=== PATIENT | male | born 1930 | race Caucasian/White ===

== ENCOUNTER 2019-09-15 10:27 | Inpatient (IN) | payer MEDICARE, MEDICAID ==
[~2019-09-15] VITALS: Ht 165.1 cm; Wt 74.8 kg
--- NOTE | 2019-09-15 10:31 | NUR ---
BIB [facility] FROM HOME,NEIGHBOR CHECKED ON HIM AND SAW HIM LIKE ABOUT TO FAINT AND GRABBING HIS CHEST, ALSO NOTED THAT HE WAS "NOT ACTING RIGHT" PATIENT A/OX3, BREATHING EVEN AND UNLABORED, ATTACHED TO THE PARCEL CARRIER. IV LINE ESTABLISHED.
--- NOTE | 2019-09-15 10:35 | NUR ---
DR SULLIVAN AT BS FOR EVAL.
[2019-09-15 10:48] LABS: BASOPHILS % (AUTO) 0.5 % (0.0-2.0); EOSINOPHILS % (AUTO) 1.1 % (0.0-6.0); HEMATOCRIT 36 % (39-51); HEMOGLOBIN 12.3 g/dL (13.5-17.5); LYMPHOCYTES # (AUTO) 1.2 /CMM (0.8-4.8); LYMPHOCYTES % (AUTO) 12.9 % (20.0-44.0); MEAN CORPUSCULAR HGB CONC 34 g/dl (31.0-36.0); MEAN CORPUSCULAR VOLUME 93 fL (80-96); MONOCYTES # (AUTO) 0.5 /CMM (0.1-1.30); MONOCYTES % (AUTO) 5.8 % (2.0-12.0); NEUTROPHILS # (AUTO) 7.4 /CMM (1.8-8.9); NEUTROPHILS % (AUTO) 79.7 % (43.0-81.0); PLATELET COUNT (AUTO) 133 /CMM (150-450); RED BLOOD CELL COUNT(AUTO) 3.89 MIL/uL (4.5-6.0); WHITE BLOOD COUNT (AUTO) 9.3 K/uL (4.3-11.0)
[2019-09-15] MEDS ORDERED: IV NS 0.9% 1,000 ML BAG IV ONE (11:00)
--- NOTE | 2019-09-15 11:03 | NUR ---
TAKEN TO CT.
[2019-09-15 11:10] LABS: CALCIUM, SERUM 9.7 mg/dL (8.5-10.1); CARBON DIOXIDE 26 mmol/L (21-32); CHLORIDE 100 mmol/L (98-107); CREATININE 1.8 mg/dL (0.6-1.3); GLUCOSE 156 mg/dL (74-106); POTASSIUM 4.7 mmol/L (3.5-5.1); SODIUM SERUM 135 mmol/L (136-145); UREA NITROGEN, BLOOD 46 mg/dL (7-18)
[2019-09-15 11:25] LABS: ALANINE AMINOTRANSFERASE 23 U/L (12-78); ALBUMIN 3.8 g/dL (3.4-5.0); ALKALINE PHOSPHATASE 63 U/L (46-116); ASPARTATE AMINOTRANSFERASE 15 U/L (15-37); BILIRUBIN,DIRECT 0.2 mg/dL (0.0-0.2); BILIRUBIN,TOTAL 0.8 mg/dL (0.2-1.0); TOTAL PROTEIN, SERUM 7.4 g/dL (6.4-8.2)
[2019-09-15 11:27] LABS: THYROID STIMULATING HORMONE 2.005 uIU/mL (0.358-3.74)
[2019-09-15 11:39] LABS: APPEARANCE,URINE Clear (CLEAR); BILIRUBIN,URINE Negative (NEGATIVE); BLOOD, URINE Trace-intact Ery/uL (NEGATIVE); COLOR,URINE Yellow (YELLOW); KETONES,URINE Negative (NEGATIVE); LEUKOCYTE ESTERASE ,URINE Negative (NEGATIVE); NITRITE, URINE Negative (NEGATIVE); PROTEIN,URINE Negative (NEGATIVE); UGLUCOSE 100 MG/DL mg/dL (NEGATIVE); UROBILINOGEN,URINE 0.2 EU/dL (0.2)
[2019-09-15 11:42] LABS: BACTERIA,URINE Rare /HPF (None Seen); MUCUS,URINE Rare /LPF (None Seen); SQUAMOUS EPITHELIAL CELL,UR Rare /HPF (None Seen); WBC,URINE 0-2 /HPF (0-3)
[2019-09-15] MEDS ORDERED: TAMS-12 PO (11:58)
[2019-09-15] MEDS ORDERED: FINA5TAB11 PO (11:58)
[2019-09-15] MEDS ORDERED: APIX5TAB PO (11:58)
[2019-09-15] MEDS ORDERED: NEBI5TAB8 PO (11:58)
[2019-09-15] MEDS ORDERED: UMEC1BLS INH (11:58)
[2019-09-15] MEDS ORDERED: SIMV-49 PO (11:58)
[2019-09-15] MEDS ORDERED: LOSA1TAB36 PO (11:58)
--- NOTE | 2019-09-15 12:48 | NUR ---
CALLED [facility]
[2019-09-15] MEDS ORDERED: ACETAMINOPHEN 325 MG TABLET PO PRN (14:00)
[2019-09-15] MEDS ORDERED: ONDANSETRON HCL/PF 4 MG/2 ML VIAL IVP PRN (14:00)
[2019-09-15] MEDS ORDERED: Z GUARD REMEDY 2 OZ OINT TP PRN (14:00)
[2019-09-15] MEDS ORDERED: MAGNESIUM HYDROXIDE 30 ML UDC PO PRN (14:00)
[2019-09-15] MEDS ORDERED: ZOLPIDEM TARTRATE 5 MG TABLET PO PRN (14:00)
[2019-09-15] MEDS ORDERED: HYDROCODONE/APAP 5/325MG 1 EACH TABLET PO PRN (14:00)
[2019-09-15] MEDS ORDERED: MAG HYDROX/AL HYDROX/SIMETH 30 ML UDC PO PRN (14:00)
--- NOTE | 2019-09-15 14:55 | NUR ---
REPORT GIVEN TO PHILIP. RUBIN AWAITING TRANSFER TO FLOOR.
[2019-09-15 15:15] VITALS: BP 151/93
--- NOTE | 2019-09-15 15:15 | NUR ---
tele contact lens blocker: admission admitted this 89 year old male pt from [facility] with dx: syncope. [place] island[place] speaking with little chinese. per staff translating, pt has difficulty expressing what he wants to say. pt appears to have expressive aphasia. pt able to follow directions and able to make simple needs known. oriented to room and surroundings. vss. afebrile. moved pt to room 311-1 with a sitter for safety. in no apparent distress noted. will continue to monitor.
--- NOTE | 2019-09-15 15:15 | NUR ---
Patient transferred to room via acls protocol. Patient a/ox3, breathing even and unlabored, no sob noted. Needs attended.
[2019-09-15] MEDS: IV D5/0.45 NACL 1,000 ML IV PRN (16:45)
--- NOTE | 2019-09-15 16:55 | NUR ---
tele inspector screen printing: notes 2d echo completed with preliminary result per tech: mild to moderate circumferential pericardial effusion. dr. mancini notified and made aware. will call dr. waddell (cardio) for consult as stated. Addendum: 09/15/19 at 1730 by MAYA HOPKINS BEAMSTER also reminded dr. mancini on home meds needs to be reconciled.
--- NOTE | 2019-09-15 18:27 | NUR ---
tele vp human resources: notes resting comfortable in bed. no distress. tele afib=80, not pacing at this time. dr. mancini notified and made aware. pt denies any chest pain or any discomfort. for cardio consult in am per md. sitter remains at bedside. will continue to monitor.
--- NOTE | 2019-09-15 18:52 | NUR ---
sylvia de jesus: visit dr. mancini at bedside examining pt at this time. Addendum: 09/15/19 at 1853 by MAYA HOPKINS LVN per , i will do his meds next as stated.
--- NOTE | 2019-09-15 19:00 | NUR ---
tele buckle stringer: notes report given to ruth (rn) for continuity of care.
[2019-09-15 20:00] VITALS: BP 144/83
--- NOTE | 2019-09-15 21:52 | NUR ---
TELE/RN OPENING NOTES RECEIVED PATIENT IN BED, CAN OPEN EYES AND ALERT X1. PATIENT ON IV HYDRATION BEING MONITORED FOR SAFETY DUE TO SYNCOPAL EPISODE, NIUEAN SPEAKING WITH INVOLVE DAUGHTER REPORTED. D51/2 NS INFUSING AT 75 ML/HR, BED LOCKED, CALL LIGHTS WITHIN REACH. WILL MONITOR. ON NPO STATUS AT THIS TIME. UNABLE TO VERBALIZE NEEDS REQUIRE ASSISTANCE. USES URINAL. WILL MONITOR.
[2019-09-16] VITALS: BP 121/65
--- NOTE | 2019-09-16 02:33 | NUR ---
TELE/RN NOTES PATIENT WITH CVA HX AND DYSPHAGIA AND ON NPO STATUS, WITH ORDER FOR SWALLOWING EVALUATION. MD ORDER CARRIED OUT.
[2019-09-16] MEDS: IV D5/0.45 NACL 1,000 ML IV PRN (05:45)
[2019-09-16 05:51] VITALS: BP 132/67
--- NOTE | 2019-09-16 06:19 | NUR ---
TELE/RN NOTES IV SITE ON RIGHT HAND REMOVED WITH INFILTRATION. ELEVATED HAND WITH PILLOW, APPLIED COMFORT MEASURES,PATIENT ALERT, ORIENTED. TO RESTART IV. PATIENT WOULD LIKE TO HAVE IT INSERTED LATER IN AM. TO FOLLOW UP .
--- NOTE | 2019-09-16 06:30 | NUR ---
TELE/RN NOTES PATIENT ALERT, ORIENTED X2, ABLE TO COOPERATE AND PARTICIPATE WITH CARE.ON OXYGEN FOR COMFORT.
--- NOTE | 2019-09-16 07:30 | NUR ---
MS/RN OPENING NOTE Patient is resting in bed, A/O x3-4, showing no signs of acute distress or SOB, stable on RA. Right upper extremity elevated and ice pack applied due to IV site infiltration during PM shift. Patient has no complaints of pain at this time. Patient is NPO status; awaiting for ST eval. Bed is in lowest position, side rails x3 in upright position, sitter is at the bedside.
[2019-09-16 08:00] VITALS: BP 149/76
[2019-09-16 08:01] VITALS: BP 132/75
[2019-09-16 08:25] LABS: BASOPHILS % (AUTO) 0.3 % (0.0-2.0); EOSINOPHILS % (AUTO) 2.1 % (0.0-6.0); HEMATOCRIT 35 % (39-51); HEMOGLOBIN 11.8 g/dL (13.5-17.5); LYMPHOCYTES % (AUTO) 11.1 % (20.0-44.0); MEAN CORPUSCULAR HGB CONC 34 g/dl (31.0-36.0); MEAN CORPUSCULAR VOLUME 93 fL (80-96); MONOCYTES # (AUTO) 0.6 /CMM (0.1-1.30); MONOCYTES % (AUTO) 7.2 % (2.0-12.0); NEUTROPHILS % (AUTO) 79.3 % (43.0-81.0); PLATELET COUNT (AUTO) 133 /CMM (150-450); RED BLOOD CELL COUNT(AUTO) 3.76 MIL/uL (4.5-6.0); WHITE BLOOD COUNT (AUTO) 8.8 K/uL (4.3-11.0)
[2019-09-16 08:27] LABS: CARBON DIOXIDE 26 mmol/L (21-32); CHLORIDE 103 mmol/L (98-107); CREATININE 1.4 mg/dL (0.6-1.3); GLUCOSE 129 mg/dL (74-106); PHOSPHORUS 3.1 mg/dL (2.5-4.9); POTASSIUM 4.4 mmol/L (3.5-5.1); SODIUM SERUM 137 mmol/L (136-145); UREA NITROGEN, BLOOD 32 mg/dL (7-18)
[2019-09-16 08:34] LABS: CHOLESTEROL 104 mg/dL (<200); HDL CHOLESTEROL 58 mg/dL (40-60); LDL 40 mg/dL (0-99); TRIGLYCERIDES 54 mg/dL (30-150)
--- NOTE | 2019-09-16 08:46 | NUR ---
WOUND CARE CONSULT: LIMITED ASSESSMENT TODAY DUE TO PT DID NOT ALLOW ASSESSMENT OF GROIN AREAS. PT ABLE TO ASSIST WITH TURNING AND REPOSITIONING IN BED AND IS CONTINENT AT THIS TIME. RECOMMENDATIONS MADE FOR SKIN PROTECTION. DISCUSSED WITH NURSING STAFF. WILL SEE PRN. BURNETT IN AGREEMENT WITH PLAN OF CARE.
[2019-09-16] MEDS ORDERED: PANTOPRAZOLE 40 MG VIAL IV SCH (09:00)
[2019-09-16] MEDS: APIXABAN 5 MG TABLET PO SCH ×2 (10:16→16:54)
[2019-09-16] MEDS: METOPROLOL TARTRATE 25 MG TABLET PO SCH ×2 (10:17→21:24)
[2019-09-16] MEDS: Magnesium 1GM/D5W 100ML PREMIX 100 ML IV SCH ×2 (10:17→11:34)
[2019-09-16] MEDS: FINASTERIDE (5 MG) 5 MG TABLET PO SCH (10:17)
[2019-09-16] MEDS: CELECOXIB 100 MG CAPSULE PO SCH ×2 (10:17→21:00)
--- NOTE | 2019-09-16 10:19 | NUR ---
MS/RN NOTE Spoke with PT, speech therapy will not be available until after 11am. Ok per MD to give patient PO meds crushed with apple sauce.
--- NOTE | 2019-09-16 11:08 | NUR ---
MS/RN NOTE V-paced captured with multifocal PVCs. Monitoring patient closely.
--- NOTE | 2019-09-16 11:09 | NUR ---
MS/RN NOTE ST eval done by speech therapy; patient on mechanical soft cardiac diet.
--- NOTE | 2019-09-16 18:00 | NUR ---
TELE/RN CLOSING NOTE Patient is resting in bed, A/O x3-4, showing no signs of acute distress or SOB, stable on RA. Vitals signs WNL. Patient has no complaints of pain during my shift. Tele monitor V-pacing with occasional PVCs. IV line in the HAM #20g is clean and intact s/l. IVF DC'd by Dr. Cruz. Dr. Robles aware. No new orders at this time. Patient ate 100% of meals today. Ambulated to bathroom with assistance. Bed is in lowest position, side rails x3 in upright position, sitter is at the bedside. Will endorse to police shift commander.
[2019-09-16 19:55] VITALS: BP 131/68
--- NOTE | 2019-09-16 21:45 | NUR ---
PATIENT REFUSING EVENING MEDICINE. MADE CALL TO DAUGHTER GWEN AND HER SPEAK TO PATIENT. PATIENT STILL REFUSING MEDICINE BUT AGREES TO TAKE METOPROOL FOR HIS BP. DAUGHTER IS CONCERNED BECAUSE PATIENT PERSONALITY HAS BEEN DIFFERENT SNCE HOSPITALIZED. REQUESTING TO SPEAK TO MD WHEN THEY DO ROUNDS IN AM. NOTE LEFT ON CHART AND WILL ENDORSE TO NEXT NURSE.
[2019-09-16] MEDS ORDERED: SIMVASTATIN 40 MG TABLET PO SCH (22:00)
[2019-09-16] MEDS ORDERED: SIMVASTATIN 20 MG TABLET PO SCH (22:00)
[2019-09-16] MEDS ORDERED: TAMSULOSIN 0.4 MG CAP.SR.24H PO SCH (22:00)
[2019-09-17 01:05] VITALS: BP 130/69
[2019-09-17 04:19] VITALS: BP 107/62
[2019-09-17 06:16] LABS: BASOPHILS % (AUTO) 0.2 % (0.0-2.0); EOSINOPHILS % (AUTO) 2.3 % (0.0-6.0); HEMATOCRIT 36 % (39-51); HEMOGLOBIN 12.3 g/dL (13.5-17.5); LYMPHOCYTES % (AUTO) 10.8 % (20.0-44.0); MEAN CORPUSCULAR HGB CONC 34 g/dl (31.0-36.0); MEAN CORPUSCULAR VOLUME 93 fL (80-96); MONOCYTES # (AUTO) 0.6 /CMM (0.1-1.30); MONOCYTES % (AUTO) 6.9 % (2.0-12.0); NEUTROPHILS # (AUTO) 7.6 /CMM (1.8-8.9); NEUTROPHILS % (AUTO) 79.8 % (43.0-81.0); PLATELET COUNT (AUTO) 134 /CMM (150-450); RED BLOOD CELL COUNT(AUTO) 3.89 MIL/uL (4.5-6.0); WHITE BLOOD COUNT (AUTO) 9.5 K/uL (4.3-11.0)
[2019-09-17 06:41] LABS: ALANINE AMINOTRANSFERASE 31 U/L (12-78); ALBUMIN 3.4 g/dL (3.4-5.0); ALKALINE PHOSPHATASE 66 U/L (46-116); ASPARTATE AMINOTRANSFERASE 24 U/L (15-37); BILIRUBIN,TOTAL 0.9 mg/dL (0.2-1.0); CALCIUM, SERUM 9.2 mg/dL (8.5-10.1); CARBON DIOXIDE 25 mmol/L (21-32); CHLORIDE 102 mmol/L (98-107); CREATININE 1.5 mg/dL (0.6-1.3); GLUCOSE 135 mg/dL (74-106); MAGNESIUM 2.4 mg/dL (1.8-2.4); POTASSIUM 4.4 mmol/L (3.5-5.1); SODIUM SERUM 136 mmol/L (136-145); UREA NITROGEN, BLOOD 28 mg/dL (7-18)
[2019-09-17 06:48] LABS: FERRITIN 153 ng/mL (8-388)
--- NOTE | 2019-09-17 07:19 | NUR ---
TELE/RN OPENING NOTE Patient is resting in bed, A/O x2-3, showing no signs of acute distress or SOB, stable on RA. Vitals signs WNL. Tele monitor V-pacing with occasional PVCs. IV line in the HAM #20g is clean and intact s/l. IVF DC'd by Dr. Robles aware. Bed is in lowest position, side rails x3 in upright position, sitter is at the bedside. Fall, safety, and aspiration precautions enforced. Will continue with plan of care.
[2019-09-17 08:00] VITALS: BP 137/76
[2019-09-17] MEDS: CELECOXIB 100 MG CAPSULE PO SCH (08:03)
[2019-09-17] MEDS: METOPROLOL TARTRATE 25 MG TABLET PO SCH (08:04)
[2019-09-17] MEDS: FINASTERIDE (5 MG) 5 MG TABLET PO SCH (08:04)
[2019-09-17] MEDS: APIXABAN 5 MG TABLET PO SCH (08:04)
[2019-09-17 08:48] LABS: IRON, SERUM 57 ug/dl (50-175); TOTAL IRON BINDING CAPACITY 260 ug/dl (250-450)
[2019-09-17] MEDS ORDERED: PANTOPRAZOLE 40 MG TABLET.DR PO SCH (09:00)
[2019-09-17] MEDS ORDERED: FLUTICASONE/VILANTEROL 1 EACH BLST.W.DEV IH SCH (09:00)
[2019-09-17] MEDS ORDERED: CELE100C PO (10:47)
[2019-09-17 14:34] VITALS: BP 136/66
--- NOTE | 2019-09-17 14:35 | NUR ---
MS/FAST BRIM POUNCER NOTE Patient is medically stable for discharge, family and MD aware. A/O x4, showing no signs of acute distress or SOB, stable on RA. DC instructions provided with healthcare economics consultant Zahira DIMAS at the bedside. Patient verbalizes understanding. Patient refused skin assessment. IV line removed, ID band removed. Patient is able to ambulate to bathroom with stand-by assistance. Patient has all belongings with them. All patient needs met and all due medications given, needs and concerns were addressed. Report given to Frankie DIMAS at [facility]. Patient left unit with EMS en route to [facility].
== END 2019-09-17 14:35 | DRG 682 ==
LOC: ER 10:27 → TELE 14:59
PROVIDERS: ADMIT Student in an Organized Health Care Education/Training Program; ATTEND Student in an Organized Health Care Education/Training Program
DX: N17.0 Acute kidney failure with tubular necrosis (principal); G93.41 Metabolic encephalopathy; E87.1 Hypo-osmolality and hyponatremia; D68.59 Other primary thrombophilia; I31.3 Pericardial effusion (noninflammatory); E11.9 Type 2 diabetes mellitus without complications; I10 Essential (primary) hypertension; I25.10 Atherosclerotic heart disease of native coronary artery without angina pectoris; E86.0 Dehydration; I25.2 Old myocardial infarction; D64.9 Anemia, unspecified; I48.91 Unspecified atrial fibrillation; Z95.0 Presence of cardiac pacemaker; Z86.73 Personal history of transient ischemic attack (TIA), and cerebral infarction without residual deficits; Z79.01 Long term (current) use of anticoagulants; N40.0 Benign prostatic hyperplasia without lower urinary tract symptoms; J44.9 Chronic obstructive pulmonary disease, unspecified; I70.0 Atherosclerosis of aorta; Z79.899 Other long term (current) drug therapy; E78.00 Pure hypercholesterolemia, unspecified; I27.20 Pulmonary hypertension, unspecified; I35.1 Nonrheumatic aortic (valve) insufficiency; I67.2 Cerebral atherosclerosis
CPT/HCPCS: 36415; 70450-TC; 71045-TC; 80048-TC; 80053-TC; 80061-TC; 80076-TC; 80305; 81000-TC; 82728-TC; 82962-TC; 83540-TC; 83735-TC; 84100-TC; 84443-TC; 84484-TC; 85025-TC; 87081-TC; 92611-TC; 93307-TC; 93880-TC; 97110-TC; 97116-TC; 97530-TC; G0378; G0480; J3475; J3490; J7030